=== PATIENT | female | born 1995 | race African-American/Black ===

== ENCOUNTER 2020-09-11 10:51 | Emergency (ER) | payer OTHER ==
[~2020-09-11] VITALS: Ht 165.1 cm; Wt 70.7 kg
[2020-09-11] MEDS ORDERED: METOCLOPRAMIDE INJ 10MG/2ML VIAL (J2765 PER 1) IV ONE (11:30)
[2020-09-11] MEDS ORDERED: NS 1,000 ML IV ONE (11:30)
[2020-09-11 11:44] LABS: APPEARANCE, URINE HAZY (CLEAR); BACTERIA, URINE AUTO 1+ (NEGATIVE); BILIRUBIN, URINE AUTO NEGATIVE (NEGATIVE); BLOOD, URINE BLOOD NEGATIVE (NEGATIVE); COLOR, URINE AMBER (YELLOW); GLUCOSE, URINE (UA) AUTO NEGATIVE (NEGATIVE); KETONE, URINE AUTO TRACE mg/dL (NEGATIVE); LEUKOCYTE ESTERASE, URINE AUTO NEGATIVE (NEGATIVE); MUCUS, URINE LARGE (NEGATIVE); NITRITE, URINE AUTO NEGATIVE (NEGATIVE); PROTEIN, URINE AUTO 1+ mg/dL (NEGATIVE); RBC, URINE AUTO 1 /HPF (0-3); SPECIFIC GRAVITY URINE AUTO 1.031 (1.002-1.035); SQUAMOUS EPITHELIAL CELL UR AU 10 /HPF (0-6); WBC, URINE AUTO 2 /HPF (0-3)
[2020-09-11 11:53] LABS: BASO % 0.4 % (0.0-1.0); EOS % 0.4 % (0.0-3.0); HEMATOCRIT 40.4 % (36.0-47.0); HEMOGLOBIN 13.2 g/dl (12.0-15.5); LYMPH % 26.4 % (24.0-44.0); MEAN CORPUSCULAR HEMOGLOBIN 29.7 pg (27.0-33.0); MEAN CORPUSCULAR HGB CONC 32.7 g/dl (32.0-36.5); MONO # 0.6 10^3/uL (0.0-0.8); MONO % 7.2 % (0.0-5.0); NEUTROPHILS % 65.2 % (36.0-66.0); PLATELET COUNT, AUTOMATED 241 10^3/uL (150-450); RED BLOOD COUNT 4.44 10^6/uL (4.00-5.40); WHITE BLOOD COUNT 7.6 10^3/uL (4.0-10.0)
--- NOTE | 2020-09-11 12:23 | REP ---
INDICATION: severe nausea/vomiting, recent abd pain 8wks preg. COMPARISON: None. TECHNIQUE: Transabdominal scanning. FINDINGS: Scanning through the urine filled bladder and uterus confirms the presence of a single living intrauterine gestation. Scio-rump length of the embryonic pole is 9.5 mm. This corresponds to a gestational age estimate of 7 weeks 0 days. heart rate is recorded at 127 beats per minute. motion is observed. There is a tiny yolk sac visualized. There is a 2.1 cm cystic area in the left ovary consistent with corpus luteum. Left ovary measures 3.3 x 2.9 x 3.8 cm. A normal right ovary seen measuring 3.4 x 3.1 x 2.4 cm. No free fluid. IMPRESSION: Viable single intrauterine gestation at 7 weeks 0 days by crown-rump length. [place] by sonography April 30, 2020. No complication is identified. <Electronically signed by Saurav Ferro > 09/11/20 [id number]
[2020-09-11 12:47] LABS: BLOOD UREA NITROGEN 11 MG/DL (7-18); CALCIUM LEVEL 9.5 MG/DL (8.5-10.1); CARBON DIOXIDE LEVEL 26 MEQ/L (21-32); CHLORIDE LEVEL 104 MEQ/L (98-107); GLOMERULAR FILTRATION RATE > 60.0 (>60); GLUCOSE, FASTING 79 MG/DL (70-100); HCG, SERUM QUANTITATIVE 94312 MIU/ML; POTASSIUM SERUM 3.8 MEQ/L (3.5-5.1); SODIUM LEVEL 136 MEQ/L (136-145)
[2020-09-11] MEDS ORDERED: REGL10TA6 PO (13:45)
[2020-09-11 14:04] VITALS: BP 114/61
== END 2020-09-11 14:06 | disposition home or self-care (01) ==
LOC: M ED 10:51
DX: O21.9 Vomiting of pregnancy, unspecified (principal); Z3A.01 Less than 8 weeks gestation of pregnancy
CPT/HCPCS: 76801; 80048; 81001; 84702; 85025; 86901; 87086; 96374; 99284; J2765